=== PATIENT | male | born 1955 | race Caucasian/White ===

== ENCOUNTER → 2016-11-16 12:56 | Outpatient (CLI) | payer BC ==
[2016-11-16 13:40] LABS: BASOPHILS 0.3 % (0.0-2.0); EOSINOPHILS 0.2 % (0-7); HEMATOCRIT 45.5 % (42.0-54.0); HEMOGLOBIN 15.5 g/dL (13.5-17.5); IMMATURE GRANULOCYTES 0.6 % (0-5); LYMPHOCYTES 9.4 % (15-50); MCH 30.9 pg (26.0-34.0); MCHC 34.1 g/dL (31.0-37.0); MCV 90.8 fL (80.0-100.0); MEAN PLATELET VOLUME 9.2 fL (7.4-10.4); MONOCYTES 3.9 % (2-11); NEUTROPHILS 85.6 % (40-80); PLATELET COUNT 262 10x3/uL (130-400); RBC 5.01 10x6/uL (4.20-6.10); RDW 12.3 % (11.5-14.5); WBC 6.6 10x3/uL (4.8-10.8)
[2016-11-16 14:03] LABS: ALBUMIN 3.8 g/dL (3.4-5.0); ANION GAP 10.5 mmol/L (8-16); BILIRUBIN - TOTAL 0.35 mg/dL (0.2-1.3); CALCIUM 9.8 mg/dL (8.5-10.1); CARBON DIOXIDE 30.2 mmol/L (21.0-32.0); CREATININE - SERUM 1.2 mg/dL (0.6-1.3); POTASSIUM - SERUM 4.7 mmol/L (3.5-5.1); PROTEIN - SERUM 7.8 g/dL (6.4-8.2); T4 THYROXIN - FREE 1.13 ng/dL (0.76-1.46); THYROID STIMULATING HORMONE 0.42 uIU/mL (0.36-3.74)
== END | disposition home or self-care (01) ==
LOC: D.RAD 12:56
PROVIDERS: Psychiatry & Neurology Neurology
DX: R13.10 Dysphagia, unspecified (principal); G70.00 Myasthenia gravis without (acute) exacerbation

== ENCOUNTER → 2016-11-22 10:15 | Outpatient (CLI) | payer BC | END | disposition home or self-care (01) | LOC: D.MRI 09:00 | DX: R13.10 Dysphagia, unspecified (principal); R47.1 Dysarthria and anarthria; G70.00 Myasthenia gravis without (acute) exacerbation ==

== ENCOUNTER → 2017-03-27 14:16 | Outpatient (CLI) | payer BC | END | disposition home or self-care (01) | LOC: D.CT 14:16 | DX: G70.00 Myasthenia gravis without (acute) exacerbation (principal) ==